=== PATIENT | female | born 1950 | race Caucasian/White ===

== ENCOUNTER 2023-09-05 12:40 | Outpatient (CLI) | payer MEDICARE, OTHER, SELFPAY | END 2023-09-05 12:41 | disposition home or self-care (01) | PROVIDERS: Visit Provider Nurse Practitioner Family | DX: T81.83XA Persistent postprocedural fistula, initial encounter (principal); L24.B1 Irritant contact dermatitis related to digestive stoma or fistula; E11.628 Type 2 diabetes mellitus with other skin complications; E11.22 Type 2 diabetes mellitus with diabetic chronic kidney disease; N18.9 Chronic kidney disease, unspecified | CPT/HCPCS: 97602; G0463 ==

== ENCOUNTER 2023-09-19 14:47 | Outpatient (CLI) | payer MEDICARE, OTHER, SELFPAY | END 2023-09-19 14:48 | disposition home or self-care (01) | LOC: WOUND 14:47 | PROVIDERS: Visit Provider Nurse Practitioner Family | DX: T81.83XA Persistent postprocedural fistula, initial encounter (principal); L24.B1 Irritant contact dermatitis related to digestive stoma or fistula; E11.628 Type 2 diabetes mellitus with other skin complications | CPT/HCPCS: G0463 ==

== ENCOUNTER 2023-10-24 13:59 | Outpatient (CLI) | payer MEDICARE, OTHER, SELFPAY | END 2023-10-24 14:00 | disposition home or self-care (01) | LOC: WOUND 13:59 | PROVIDERS: Visit Provider Nurse Practitioner Family | DX: E11.628 Type 2 diabetes mellitus with other skin complications (principal); T81.83XA Persistent postprocedural fistula, initial encounter; L24.B1 Irritant contact dermatitis related to digestive stoma or fistula | CPT/HCPCS: 97597 ==

== ENCOUNTER 2023-10-31 07:56 | Outpatient (CLI) | payer MEDICARE, OTHER, SELFPAY | END 2023-10-31 07:57 | disposition home or self-care (01) | PROVIDERS: PCP Internal Medicine; Visit Provider Nurse Practitioner Family | DX: T81.83XA Persistent postprocedural fistula, initial encounter (principal); L24.B1 Irritant contact dermatitis related to digestive stoma or fistula; E11.628 Type 2 diabetes mellitus with other skin complications | CPT/HCPCS: G0463 ==